=== PATIENT | female | born 1995 | race American Indian/Alaskan Native ===

== ENCOUNTER 2018-09-07 04:28 | Emergency (ER) | payer OTHER ==
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
[2018-09-07 07:13] VITALS: BP 138/87
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
[2018-09-07] MEDS ORDERED: IBUPROFEN PO ONE (08:17)
== END 2018-09-07 08:37 | disposition home or self-care (01) ==
LOC: ED 04:28
DX: S16.1XXA Strain of muscle, fascia and tendon at neck level, initial encounter (principal); S80.211A Abrasion, right knee, initial encounter; Z91.010 Allergy to peanuts; Z91.018 Allergy to other foods; Z91.013 Allergy to seafood; V89.2XXA Person injured in unspecified motor-vehicle accident, traffic, initial encounter; Y93.89 Activity, other specified; Y92.488 Other paved roadways as the place of occurrence of the external cause; Y99.8 Other external cause status
CPT/HCPCS: 70450; 72125; 99284

== ENCOUNTER 2021-02-13 01:29 | Emergency (ER) | payer SELFPAY | END 2021-02-14 19:10 | LOC: ED 01:29 | DX: S09.90XA Unspecified injury of head, initial encounter (principal); Z53.21 Procedure and treatment not carried out due to patient leaving prior to being seen by health care provider; X58.XXXA Exposure to other specified factors, initial encounter; Y93.89 Activity, other specified; Y92.89 Other specified places as the place of occurrence of the external cause; Y99.8 Other external cause status ==